=== PATIENT | female | born 1995 | race Caucasian/White ===

== ENCOUNTER 2018-07-01 12:50 | Emergency (ER) | payer SELFPAY ==
--- NOTE | 2018-07-01 13:57 | EDPHY ---
H & P Time Seen by Provider: 07/01/18 13:34 HPI/ROS: CHIEF COMPLAINT: Left ankle and foot pain HISTORY OF PRESENT ILLNESS: 22-year-old female presents with left ankle foot pain. She rolled her left ankle yesterday. Immediate onset of moderate left ankle pain. Increased pain and swelling today, including pain on the lateral aspect of the foot. Able to ambulate. No other injuries. ROS: No numbness, weakness, bleeding, syncopal episode, other injury. Past Medical/Surgical History: Denies Smoking Status: Light smoker Physical Exam: Alert, pleasant Extremities: Left ankle with swelling over the lateral malleolus and over the proximal 5th metatarsal. There is no posterior lateral malleolus tenderness or midfoot tenderness. The ankle is stable and the Achilles tendon is intact. Vascular: Pedal pulses 2+ Neurologic: Ankle and foot with normal sensation and strength Skin: Intact Constitutional: Initial Vital Signs Temperature (C) 36.7 C 07/01/18 12:54 Heart Rate 99 07/01/18 12:54 Respiratory Rate 18 07/01/18 12:54 Blood Pressure 124/76 H 07/01/18 12:54 O2 Sat (%) 95 07/01/18 12:54 O2 Delivery Mode Room Air Allergies/Adverse Reactions: No Known Allergies Allergy (Unverified 07/01/18 12:54) Home Medications: Medication Instructions Recorded NK [No Known Home Meds] 07/01/18 Medical Decision Making - Diagnostics Imaging Results: X-ray independently reviewed by me reveals a displaced proximal 5th metatarsal fracture. Imaging: I viewed and interpreted images myself ED Course/Re-evaluation: This patient presents with foot pain. X-ray reveals a proximal 5th metatarsal fracture. She was placed in a Contreras boot and on crutches. Will follow up with orthopedic surgery. Departure - Departure Disposition: Home, Routine, Self-Care Clinical Impression: Fracture of fifth metatarsal bone of left foot Condition: Good Instructions: Foot Fracture in Adults (ED) Additional Instructions: Keep leg elevated whenever possible. Ice for 20 min every 2-3 hours. Use crutches to ambulate. Tylenol 650 mg every 4 hr as needed for pain. Referrals: Valdemar Thornton MD [Medical Doctor] - As per Instructions
[2018-07-01 14:26] VITALS: BP 130/80
== END 2018-07-01 14:23 | disposition home or self-care (01) ==
DX: S92.352A Displaced fracture of fifth metatarsal bone, left foot, initial encounter for closed fracture (principal); X50.1XXA Overexertion from prolonged static or awkward postures, initial encounter
CPT/HCPCS: L4386